=== PATIENT | male | born 1995 | race American Indian/Alaskan Native ===

== ENCOUNTER 2019-04-29 11:34 | Emergency (ER) | payer OTHER ==
[2019-04-29 12:29] VITALS: BP 119/66
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
[2019-04-29] MEDS ORDERED: IBUPROFEN 800 MG TAB PO ONE (16:10)
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
== END 2019-04-29 18:32 | disposition home or self-care (01) ==
LOC: ED 11:34
DX: S60.221A Contusion of right hand, initial encounter (principal); S80.211A Abrasion, right knee, initial encounter; R07.89 Other chest pain; V49.49XA Driver injured in collision with other motor vehicles in traffic accident, initial encounter; Y93.89 Activity, other specified; Y92.488 Other paved roadways as the place of occurrence of the external cause; Y99.8 Other external cause status
CPT/HCPCS: 71045; 99283